=== PATIENT | female | born 1940 | race Two or more races ===

== ENCOUNTER 2020-04-29 01:01 | Emergency (ER) | payer OTHER ==
[~2020-04-29] VITALS: Ht 152.4 cm; Wt 55.3 kg
[~2020-04-29 01:01] MED LIST: HUMALOG100 U/ML SQ; HUMULIN N100 U/ML SQ; PROVENTIL2.5 MG/3 M IH; XOPENEX0.63 MG/3 IH
== END 2020-04-29 04:57 | disposition home or self-care (01) ==
LOC: ER 01:01
DX: S01.92XA Laceration with foreign body of unspecified part of head, initial encounter (principal); W18.09XA Striking against other object with subsequent fall, initial encounter; Y93.89 Activity, other specified; Y92.098 Other place in other non-institutional residence as the place of occurrence of the external cause; Y99.8 Other external cause status

== ENCOUNTER 2020-05-07 16:01 | Emergency (ER) | payer OTHER ==
[~2020-05-07] VITALS: Ht 152.4 cm; Wt 55.8 kg
[2020-05-07] MEDS ORDERED: SIMVASTATIN5 MG (16:18)
[2020-05-07] MEDS ORDERED: DIOVAN320 MG (16:18)
[2020-05-07] MEDS ORDERED: DILTIAZEM ER300 MG (16:18)
[2020-05-07] MEDS ORDERED: MONTELUKAST SODI4 M1 (16:19)
[2020-05-07] MEDS ORDERED: GRALISE600 MG (16:19)
[2020-05-07] MEDS ORDERED: MIRTAZAPINE15 M1 (16:19)
[2020-05-07] MEDS ORDERED: ATIVAN2 M1 (16:19)
[2020-05-07] MEDS ORDERED: NOVOLIN R100 UNIT/1 (16:20)
[2020-05-07] MEDS ORDERED: CANDESARTAN-HC1 EAC1 (16:20)
[2020-05-07] MEDS ORDERED: ANTIBIOTIC28.4 GM TOP (17:27)
== END 2020-05-07 19:32 | disposition home or self-care (01) ==
LOC: ER 16:01
DX: Z48.02 Encounter for removal of sutures (principal)